=== PATIENT | male | born 2000 | race Caucasian/White ===

== ENCOUNTER → 2018-03-09 12:35 | Outpatient (CLI) | payer OTHER, SELFPAY ==
--- NOTE | 2018-03-09 12:44 | RAD_ITS ---
STUDY: X-RAY - LEFT WRIST REASON FOR EXAM: Male, 17 years old. Pain after trauma TECHNIQUE: 3 view(s) of the wrist were obtained. COMPARISON: None. FINDINGS: Normal visualized distal radius and ulna. Normal radiocarpal articulation. Normal distal radioulnar articulation. Normal carpal bones. Normal carpal articulations. Normal carpometacarpal articulation of the thumb. Normal second through fifth carpometacarpal articulations. Normal visualized metacarpal bones. The soft tissue structures are unremarkable. RAD/Wrist min 3 Views IMPRESSION: Normal x-ray examination of the wrist. Electronically Signed: Misha Vegas MD at 13:33 EDT , Service support ,
== END ==
PROVIDERS: Family Provider Family Medicine; PCP Family Medicine; Visit Provider Family Medicine
DX: M25.532 Pain in left wrist (principal)
CPT/HCPCS: 73110

== ENCOUNTER → 2018-05-03 13:59 | Outpatient (CLI) | payer OTHER, SELFPAY | PROVIDERS: Family Provider Family Medicine; PCP Family Medicine | DX: J02.9 Acute pharyngitis, unspecified (principal) | CPT/HCPCS: 87070; 87077; 87186 ==

== ENCOUNTER → 2019-07-03 11:19 | Outpatient (CLI) | payer OTHER, SELFPAY ==
--- NOTE | 2019-07-03 11:27 | RAD_ITS ---
STUDY: X-RAY - LEFT SHOULDER REASON FOR EXAM: Male, 18 years old. Painful shoulder. TECHNIQUE: 4 view(s) of the shoulder. COMPARISON: None. FINDINGS: Normal glenohumeral articulation. There is no widening of the coracoclavicular distance. There is widening of the AC joint, but without displacement of the clavicle or widening of the coracoclavicular distance, consistent with a Type II acromioclavicular joint separation. Normal acromion. Normal humeral head and visualized proximal humerus. The soft tissue structures are unremarkable. Normal visualized pulmonary apex. RAD/Shoulder min 2 Views IMPRESSION: Type II left AC joint separation. Electronically Signed: Kristopher Rincon, at 12:33 EST , Service support ,
== END ==
PROVIDERS: Family Provider Family Medicine; PCP Family Medicine; Referring Provider Nurse Practitioner Adult Health; Visit Provider Nurse Practitioner Adult Health
DX: M25.512 Pain in left shoulder (principal)
CPT/HCPCS: 73030

== ENCOUNTER → 2019-07-24 10:01 | Outpatient (CLI) | payer OTHER, SELFPAY ==
--- NOTE | 2019-07-24 10:09 | RAD_ITS ---
CLINICAL HISTORY: Male, 18 years old. Left shoulder pain. PROCEDURE: ARTHROGRAM - LEFT SHOULDER. CONSENT: The procedure as well as the benefits and possible complications including infection and bleeding were explained to the patient. Informed consent was obtained. FLUOROSCOPY TIME (if supplied): (2 minutes and 26 seconds) minutes/seconds Injection Information: 10 cc of dilute MRI contrast. Number of images obtained: 4 TECHNIQUE: (All elements of maximal sterile barrier technique followed, including US elements as applicable) The patient was in the supine position. The overlying skin was prepped and draped in usual sterile fashion. Following local anesthetic application and under direct fluoroscopic guidance, a 22-gauge spinal needle was placed into the shoulder joint. 2 cc''s of the Isovue 300 was injected for confirmation. Following this, 10 cc of a dilute MRI contrast was injected. The patient tolerated the procedure well. RAD/Arthrogram Shoulder w/ MRI IMPRESSION: Intra-articular injection of 10 cc of dilute MRI contrast for MRI imaging. The patient tolerated the procedure well. Electronically Signed: Kristopher Rincon, at 11:28 EST , Service support ,
--- NOTE | 2019-07-24 10:16 | MRI_ITS ---
STUDY: MR LEFT SHOULDER ARTHROGRAPHY REASON FOR EXAM: Instability, left shoulder sprain from baseball injury. TECHNIQUE: Standardized fat and water weighted pulse sequences were obtained in all 3 orthogonal planes after intra-articular instillation of dilute Dotarem. COMPARISON: Radiographs 07/03/2019. FINDINGS: Normal supraspinatus tendon. Normal infraspinatus tendon. There is mild iatrogenic contrast in the subscapularis tendon. Normal teres minor tendon. Normal supraspinatus muscle. Normal infraspinatus muscle. Normal subscapularis muscle. Normal teres minor muscle. Normal glenohumeral articulation. Normal humeral head and visualized proximal humerus. Normal biceps labral complex. Normal intracapsular long biceps tendon. Normal labrum. Normal capsulo- ligamentous complex. There is mild elevation of the distal clavicle (T2 coronal image 10) without demonstrated sprain of the acromioclavicular joint capsule or coracoclavicular ligaments. There is a Type II morphology (curved), with a neutral orientation. There is a small volume of iatrogenic contrast in the anterior subacromial-subdeltoid bursa. Normal visualized coracohumeral and coracoacromial ligaments. There is mild iatrogenic edema in the proximal anterior deltoid muscle. Normal trapezius muscle. MRI/Upper Ext Jt Only W/Contrast IMPRESSION: Mild elevation of the distal clavicle without demonstrated injury of the acromioclavicular joint capsule or coracoclavicular ligaments. No demonstrated labral tear. Electronically Signed: Lorenzo Alvares MD at 12:29 EST Tel , Service support ,
== END ==
PROVIDERS: Family Provider Family Medicine; PCP Family Medicine; Referring Provider Specialist; Visit Provider Specialist
DX: M25.312 Other instability, left shoulder (principal); S43.492A Other sprain of left shoulder joint, initial encounter
CPT/HCPCS: 23350; 73222; 77002; A9575; Q9967

== ENCOUNTER → 2019-11-10 17:11 | Outpatient (CLI) | payer OTHER, SELFPAY | PROVIDERS: Visit Provider Family Medicine | DX: J02.9 Acute pharyngitis, unspecified (principal) | CPT/HCPCS: 87070 ==

== ENCOUNTER → 2021-06-26 13:03 | Outpatient (CLI) | payer OTHER, SELFPAY ==
--- NOTE | 2021-06-26 13:11 | ECHOD_ITS ---
Reason For Study: BETANCOURT Procedure This was a 2D Doppler, Color Flow transthoracic echocardiogram. The exam was of adequate technical quality. Exam performed in department. Left Ventricle Normal LV size. Left ventricular systolic function is normal. The estimated ejection fraction is 60 %. No evidence for diastolic dysfunction. No regional wall motion abnormalities noted. Right Ventricle Normal RV size. Normal systolic function. Atria Normal left atrium. Normal right atrium. No doppler evidence for ASD. Mitral Valve There is no mitral annular calcification. Normal mitral valve. Trivial mitral valve insufficiency. Tricuspid Valve Normal tricuspid valve. Mild tricuspid valve insufficiency. Right ventricular systolic pressure estimated to be 27 mmHg. Aortic Valve Trisinus/trileaflet aortic valve. Normal aortic valve. Pulmonic Valve The pulmonic valve is not well visualized. Trivial pulmonic valve insufficiency. Great Vessels The aortic root is not well visualized. Pericardium/Pleural No pericardial effusion. MMode/2D Measurements & Calculations LVIDd: 5.6 cm IVSd: 0.88 cm LAV(MOD-sp4): 40.9 ml LVIDs: 3.8 cm LVPWd: 0.85 cm RVDd: 3.9 cm FS: 32.6 % LVAd ap4: 37.6 cm2 LVAd ap2: 35.1 cm2 SV(MOD-sp4): 85.2 ml LVLd ap4: 8.3 cm LVLd ap2: 8.6 cm EDV(MOD-sp4): 146.4 ml EDV(MOD-sp2): 121.5 ml EDV(sp4-el): 144.7 ml EDV(sp2-el): 121.6 ml LVAs ap4: 21.6 cm2 LVAs ap2: 18.5 cm2 LVLs ap4: 6.8 cm LVLs ap2: 6.4 cm ESV(MOD-sp4): 61.2 ml ESV(MOD-sp2): 47.0 ml ESV(sp4-el): 58.3 ml ESV(sp2-el): 45.7 ml EF(MOD-sp4): 58.2 % EF(MOD-sp2): 61.3 % EF(sp4-el): 59.7 % SV(MOD-sp2): 74.5 ml SV(sp4-el): 86.4 ml LA A4 area: 15.5 cm2 LA dimension(2D): 3.4 cm RA A4 area: 16.5 cm2 Time Measurements MV dec time: 0.17 sec Doppler Measurements & Calculations MV E max alton: 77.8 cm/sec Lat Peak E' Alton: 16.8 cm/sec Med Peak E' Alton: 14.8 cm/sec MV A max alton: 56.2 cm/sec E/E' lat: 4.6 E/E' med: 5.2 MV E/A: 1.4 Ao V2 max: 127.3 cm/sec LV V1 max: 95.7 cm/sec PA V2 max: 112.7 cm/sec Ao max P.5 mmHg LV V1 max P.7 mmHg TR max alton: 246.7 cm/sec TR max P.3 mmHg ECHO/Echo Complete Interpretation Summary Left ventricular systolic function is normal. The estimated ejection fraction is 60 %. Trivial mitral valve insufficiency. Mild tricuspid valve insufficiency. Trivial pulmonic valve insufficiency. Right ventricular systolic pressure estimated to be 27 mmHg. No evidence for diastolic dysfunction. Ordering Physician: Henok Galvan Referring Physician: Henok Galvan Performed By: Ginny Beverly, RDCS, RVT
== END ==
PROVIDERS: Referring Provider Family Medicine; Visit Provider Family Medicine
DX: R06.00 Dyspnea, unspecified (principal)
CPT/HCPCS: 93306